=== PATIENT | female | born 1930 | race Caucasian/White ===

== ENCOUNTER 2017-08-04 11:11 | Emergency (ER) | payer MEDICARE ==
[2017-08-04] MEDS: MECLIZINE HCL 12.5 MG TABLET. PO (11:38)
[2017-08-04] MEDS: oxyCODONE/APAP 5/325 1 TAB TABLET PO (11:39)
== END 2017-08-04 13:14 | disposition home or self-care (01) ==
LOC: ER 11:11
DX: R05 Cough (principal); M54.5 Low back pain; R42 Dizziness and giddiness; R53.1 Weakness; E11.9 Type 2 diabetes mellitus without complications; E78.00 Pure hypercholesterolemia, unspecified; I10 Essential (primary) hypertension; E05.90 Thyrotoxicosis, unspecified without thyrotoxic crisis or storm; E66.01 Morbid (severe) obesity due to excess calories; Z68.32 Body mass index [BMI] 32.0-32.9, adult; Z88.0 Allergy status to penicillin; Z90.49 Acquired absence of other specified parts of digestive tract; Z88.1 Allergy status to other antibiotic agents
CPT/HCPCS: 71020; 72170; 72220; 99284; J8597

== ENCOUNTER 2017-11-08 09:19 | Emergency (ER) | payer MEDICARE ==
[2017-11-08 10:09] LABS: BILIRUBIN,URINE NEGATIVE (NEG); CLARITY,URINE CLEAR; COLOR,URINE YELLOW; GLUCOSE,URINE NEGATIVE (NEG); NITRITE,URINE NEGATIVE (NEG); PROTEIN,URINE NEGATIVE (NEG-TRACE); UROBILINOGEN,URINE 0.2 mg/dL (0.2 mg/dL)
[2017-11-08] MEDS: CYCLOBENZAPRINE 10 MG TABLET. PO (10:14)
[2017-11-08 10:20] LABS: BACTERIA,URINE FEW /HPF (0-FEW); RBC,URINE OCC /HPF (0-2); SQUAMOUS EPITHELIAL CELL,UR FEW /LPF
== END 2017-11-08 11:23 | disposition home or self-care (01) ==
LOC: ER 09:19
DX: M25.552 Pain in left hip (principal); E11.9 Type 2 diabetes mellitus without complications; E05.90 Thyrotoxicosis, unspecified without thyrotoxic crisis or storm; E78.00 Pure hypercholesterolemia, unspecified; G89.29 Other chronic pain; Z90.49 Acquired absence of other specified parts of digestive tract; I10 Essential (primary) hypertension; Z88.0 Allergy status to penicillin; Z88.1 Allergy status to other antibiotic agents
CPT/HCPCS: 73502; 81001; 87086; 99285-25

== ENCOUNTER 2018-04-07 12:14 | Emergency (ER) | payer MEDICARE ==
[~2018-04-07] VITALS: Ht 157.5 cm; Wt 69.4 kg
[~2018-04-07 12:14] MED LIST: ASPI325T8 PO; CYCL5TAB PO; FERR325T14 PO; GABA-585 PO; GLIP2.5T PO; GLIP2.5T16 PO; LISI-334 PO; LISI-338 PO; METF500T16 PO; METH5TAB6 PO; NAPR220T70 PO; SULI200T2 PO; TRAM50TA PO; TRAV5DRO OP
[2018-04-07] MEDS ORDERED: LIDOCAINE 1% PF 30 ML VIAL. INJ ONE (12:45)
--- NOTE | 2018-04-07 13:26 | RAD ---
CT HEAD AND CERVICAL SPINE WO Clinical indications: FELL TODAY, HIT HEAD, NO loss of consciousness. Neck pain. NONCONTRAST HEAD CT COMPARISON: September 13, 2014. Technique: Noncontrast axial cross sectional scanning of the head was performed. PQRS compliance Statement One or more of the following individualized dose reduction techniques were utilized for these studies: 1. Automated exposure control 2. Adjustment of the mA and/or kV according to patient size 3. Use of iterative reconstruction technique Findings: No acute intracranial hemorrhage or midline shift or mass-effect or hydrocephalus or extra-axial fluid collection is seen. Mild bilateral periventricular white matter hypodensity is seen consistent with chronic small vessel ischemic disease in this age group. No new asymmetric sulci effacement is seen. No skull fracture or pneumocephalus is seen. No opacification of the mastoid sinuses or the paranasal sinuses is seen. Impression: No acute intracranial hemorrhage is seen. No mass effect. Mild chronic small vessel ischemic disease. CERVICAL SPINE CT WITHOUT CONTRAST TECHNIQUE: Noncontrast helical CT scanning of the cervical spine was performed. Multiplanar 2-D reconstructions were generated. FINDINGS: No acute fracture or discitis or osteolytic process is evident. Grade 1 anterolisthesis of C3-4 is seen. There is severe degenerative disc space narrowing and moderate degenerative endplate spurring at C2-3 and there is moderate degenerative disc space narrowing and endplate spurring at C4-5 and there is moderate degenerative disc space narrowing and prominent degenerative endplate spurring at C5-6. There is a significant spinal canal stenosis at C5-C6 as a result. The spurring of the left side at this level extends almost all the way to the lamina. Therefore cord compression is possible at this level. No perching of facet joints is seen. There is developmental fusion of T2-3. IMPRESSION: No acute fracture. Degenerative cervical spondylosis. Severe spinal canal stenosis on the left side at C5-6 due to a large endplate osteophyte. Cord impingement is possible here. Electronically signed by: Orlando Blake MD (04/07/2018 1:23 PM) [facility]
--- NOTE | 2018-04-07 13:27 | PHYS DOC ---
Past Medical History Past Medical History: Diabetes-Type II, High Cholesterol, Hypertension, Hyperthyroid, Other Additional Past Medical Histor: morbid obesity, vertigo, mass in chest, leg cramps Past Surgical History: Cholecystectomy, Tonsillectomy, Other Additional Past Surgical Histo: hernia repair x 3 Alcohol Use: None Drug Use: None Adult General Chief Complaint Chief Complaint: MECHANICAL FALL HPI HPI Patient is a 87 year old female who presents after a fall. The patient normally lives at home. She takes care of herself. She does live with her granddaughter. Today, she was exiting the bathtub and slipped and fell. She struck the left side of her face on the bathtub and sustained a laceration. She denies that she had loss of consciousness. She does not have neck pain. She does not have any nausea or vomiting or vision changes. Patient has otherwise been at baseline health. This was a mechanical fall. She did not have chest pain or shortness of breath or palpitations or syncope. Review of Systems Review of Systems Constitutional: Denies fever Eyes: Denies change in visual acuity HENT: Denies nasal congestion Respiratory: Denies cough Cardiovascular: No additional information GI: Denies abdominal pain, nausea Musculoskeletal: Denies back pain Integument: Denies rash or skin lesions Neurologic: Denies headache All other systems were reviewed and found to be within normal limits, except as documented in this note. Current Medications Current Medications Current Medications Medications (Trade) Dose Ordered Sig/[facility] Start Time Stop Time Status Last Admin Dose Admin Lidocaine HCl (Xylocaine 1% Pf 30ml Vial) 10 ml 1X ONCE 04/07/18 12:45 04/07/18 12:46 DC 04/07/18 12:45 10 ML Allergies Allergies Allergies Coded Allergies Type Severity Reaction Last Updated Verified Penicillins Allergy Intermediate Hives 07/15/13 Yes levofloxacin Allergy Intermediate Hives 07/15/13 Yes tetracycline HCl Allergy Intermediate Hives 07/15/13 Yes Physical Exam Physical Exam Constitutional: Well developed, well nourished, no acute distress, non-toxic appearance HENT: Normocephalic, 2 inch laceration along the lateral aspect of the left eyebrow. hemostatic. bilateral external ears normal, oropharynx moist, no oral exudates, nose normal Eyes: PERRLA, EOMI, conjunctiva normal Neck: Normal range of motion, no tenderness Cardiovascular:Heart rate regular rhythm, no murmur Lungs & Thorax: Bilateral breath sounds clear to auscultation Abdomen: Bowel sounds normal Skin: Warm, dry Back: No tenderness Extremities: No tenderness, no additional trauma seen Neurologic: Alert and oriented X 3, normal motor function Psychologic: Affect normal Current Patient Data Vital Signs Vital Signs Date Time Temp Pulse Resp B/P (MAP) Pulse Ox O2 Delivery O2 Flow Rate FiO2 04/07/18 13:57 57 20 98 04/07/18 12:24 98.2 177/67 (103) Room Air 98.2 EKG EKG [] Radiology/Procedures Radiology/Procedures Findings: No acute intracranial hemorrhage or midline shift or mass-effect or hydrocephalus or extra-axial fluid collection is seen. Mild bilateral periventricular white matter hypodensity is seen consistent with chronic small vessel ischemic disease in this age group. No new asymmetric sulci effacement is seen. No skull fracture or pneumocephalus is seen. No opacification of the mastoid sinuses or the paranasal sinuses is seen. Impression: No acute intracranial hemorrhage is seen. No mass effect. Mild chronic small vessel ischemic disease. CERVICAL SPINE CT WITHOUT CONTRAST TECHNIQUE: Noncontrast helical CT scanning of the cervical spine was performed. Multiplanar 2-D reconstructions were generated. FINDINGS: No acute fracture or discitis or osteolytic process is evident. Grade 1 anterolisthesis of C3-4 is seen. There is severe degenerative disc space narrowing and moderate degenerative endplate spurring at C2-3 and there is moderate degenerative disc space narrowing and endplate spurring at C4-5 and there is moderate degenerative disc space narrowing and prominent degenerative endplate spurring at C5-6. There is a significant spinal canal stenosis at C5-C6 as a result. The spurring of the left side at this level extends almost all the way to the lamina. Therefore cord compression is possible at this level. No perching of facet joints is seen. There is developmental fusion of T2-3. IMPRESSION: No acute fracture. Degenerative cervical spondylosis. Severe spinal canal stenosis on the left side at C5-6 due to a large endplate osteophyte. Cord impingement is possible here. Course & Med Decision Making Course & Med Decision Making Pertinent Labs and Imaging studies reviewed. (See chart for details) Patient was evaluated in the emergency department after a fall. She had a laceration over the left orbit which is repaired. See the procedure note below. Patient had CT scan of the head and neck which did not reveal acute traumatic injury. Patient was accompanied today by her granddaughter's with whom she lives. Plan is for discharge home. Patient is provided information regarding fall prevention in the home. She is advised to come back to the ER for any new or worsening symptoms. Otherwise, return in 5 days for suture removal. All of her questions are answered prior to discharge. Patient was ambulated also prior to discharge and did ambulate at her baseline and without difficulties. Procedure note: Laceration over the lateral aspect of the left orbit/left eyebrow. 2 inches in length. The area was cleansed with a mixture of saline and Betadine. 3 total milliliters of 2% lidocaine were used to provide local anesthesia. 5 simple interrupted sutures were placed using 5-0 nylon. The patient tolerated well and the laceration was hemostatic by the end of the procedure. Dragon Disclaimer Dragon Disclaimer This electronic medical record was generated, in whole or in part, using a voice recognition dictation system. Departure Departure Referrals: JOSÉ MIGUEL BENNETT APRN (PCP) CAPRI MCGEE DO Apr 07, 2018 13:27
[2018-04-07 13:57] VITALS: BP 173/77
== END 2018-04-07 14:30 | disposition home or self-care (01) ==
LOC: ER 12:14
DX: S01.112A Laceration without foreign body of left eyelid and periocular area, initial encounter (principal); E78.00 Pure hypercholesterolemia, unspecified; E11.9 Type 2 diabetes mellitus without complications; E05.90 Thyrotoxicosis, unspecified without thyrotoxic crisis or storm; E66.01 Morbid (severe) obesity due to excess calories; Z68.28 Body mass index [BMI] 28.0-28.9, adult; W01.198A Fall on same level from slipping, tripping and stumbling with subsequent striking against other object, initial encounter; Y93.E1 Activity, personal bathing and showering; Y92.89 Other specified places as the place of occurrence of the external cause; Y99.8 Other external cause status
CPT/HCPCS: 12001; 70450; 72125; 99284-25

== ENCOUNTER 2018-04-12 09:26 | Emergency (ER) | payer MEDICARE ==
[~2018-04-12] VITALS: Ht 154.9 cm; Wt 69.4 kg
[2018-04-12 10:15] VITALS: BP 156/70
--- NOTE | 2018-04-12 10:16 | PHYS DOC ---
Past Medical History Past Medical History: Diabetes-Type II, High Cholesterol, Hypertension, Hyperthyroid, Other Additional Past Medical Histor: morbid obesity, vertigo, mass in chest, leg cramps Past Surgical History: Cholecystectomy, Tonsillectomy, Other Additional Past Surgical Histo: hernia repair x 3 Alcohol Use: None Drug Use: None Adult General Chief Complaint Chief Complaint: SUTURE/STAPLE REMOVAL [facility] Patient is a 87 year old female who presents with 6 sutures to right mormonism that were placed on Sunday. Patient is here for suture removal. Review of Systems Review of Systems Constitutional: Denies fever or chills [] Eyes: Denies change in visual acuity, redness, or eye pain [] HENT: Denies nasal congestion or sore throat [] Respiratory: Denies cough or shortness of breath [] Cardiovascular: No additional information not addressed in [facility] [] GI: Denies abdominal pain, nausea, vomiting, bloody stools or diarrhea [] : Denies dysuria or hematuria [] Musculoskeletal: Denies back pain or joint pain [] Integument: Right mormonism suture removal. Bruising is yello to side of head where effected area is.Denies rash or skin lesions [] Neurologic: Denies headache, focal weakness or sensory changes [] Endocrine: Denies polyuria or polydipsia [] All other systems were reviewed and found to be within normal limits, except as documented in this note. Allergies Allergies Allergies Coded Allergies Type Severity Reaction Last Updated Verified Penicillins Allergy Intermediate Hives 07/15/13 Yes [facility] Yes tetracycline HCl Allergy Intermediate [facility] 07/15/13 Yes Physical Exam Physical Exam Constitutional: Well developed, well nourished, no acute distress, non-toxic appearance. [] HENT: Normocephalic, atraumatic, bilateral external ears normal, oropharynx moist, no oral exudates, nose normal. [] Eyes: PERRLA, EOMI, conjunctiva normal, no discharge. [] Neck: Normal range of motion, no tenderness, supple, no stridor. [] Cardiovascular:Heart rate regular rhythm, no murmur [] Lungs & Thorax: Bilateral breath sounds clear to auscultation [] Abdomen: Bowel sounds normal, soft, no tenderness, no masses, no pulsatile masses. [] Skin: 6 sutures to Right mormonism without drainage or redness. Warm, dry, no erythema, no rash. [] Back: No tenderness, no CVA tenderness. [] Extremities: No tenderness, no cyanosis, no clubbing, ROM intact, no edema. [] Neurologic: Alert and oriented X 3, normal motor function, normal sensory function, no focal deficits noted. [] Psychologic: Affect normal, judgement normal, mood normal. [] Current Patient Data Vital Signs Vital Signs Date Time Temp Pulse Resp B/P (MAP) Pulse Ox O2 Delivery O2 Flow Rate FiO2 04/12/18 10:00 98.2 67 18 171/73 (105) 97 Room Air 98.2 EKG EKG [] Radiology/Procedures Radiology/Procedures [] Course & Med Decision Making Course & Med Decision Making Sutures removed by nurse. Laceration edges are approximated and closed. There is no redness, warmth, or drainage to the area. Patient denies head pain, dizziness or syncope. Patient has yellow bruising top the effected area. Peter has sutures placed 5 days ago. Steri strips are placed over the area for further reinforcement of the effected area. Peter is discharged home and can follow up with her primary care. [] Dragon Disclaimer Dragon Disclaimer This electronic medical record was generated, in whole or in part, using a voice recognition dictation system. Departure Departure Impression: Primary Impression: Visit for suture removal Disposition: 01 HOME, SELF-CARE Condition: STABLE Referrals: JOSÉ MIGUEL BENNETT APRN (PCP) Patient Instructions: Suture Removal Additional Instructions: Patient to follow up with primary care if needed. RAVI BOLAÑOS APRN Apr 12, 2018 10:16
== END 2018-04-12 10:15 | disposition home or self-care (01) ==
LOC: ER 09:26
DX: S01.81XD Laceration without foreign body of other part of head, subsequent encounter (principal); E11.9 Type 2 diabetes mellitus without complications; E78.00 Pure hypercholesterolemia, unspecified; I10 Essential (primary) hypertension; E03.9 Hypothyroidism, unspecified; E66.01 Morbid (severe) obesity due to excess calories; Z68.28 Body mass index [BMI] 28.0-28.9, adult; Z88.0 Allergy status to penicillin; Z88.1 Allergy status to other antibiotic agents; W19.XXXD Unspecified fall, subsequent encounter
CPT/HCPCS: 99284